=== PATIENT | female | born 2000 | race Caucasian/White ===

== ENCOUNTER 2019-04-23 03:40 | Emergency (ER) | payer OTHER ==
--- NOTE | 2019-04-23 03:54 | PDOC ---
History of Present Illness - General Stated Complaint: ABD PAIN Time Seen by Provider: 04/23/19 03:49 - History of Present Illness Initial Comments: 04/23/19 03:52 18 yo F with no sig pmh who p/w midabdominal pain, vomitting, diarrhea. Patient reports 1 day of crampy, spasmodic, midabdominal pain, occuring every 2 hours, beginning at 4:00 PM (04/22/19) with no identifiable triggers or alleviators. Reports 2 episodes NBNB emesis, and one loose watery stool, within 24 hours. + decreased appetitie, and decreased PO intake. Denies recent travels, sick contacts, or change in diet. LMP x 1 month [employer]. Patient denies vision change, palpitations, cough, wheezing, orthopena, PND, leg swelling/pain, F,C, CP, SOB, urinary complaints, hematuria, BPR, vaginal burning/itching, pelvic pain, constipation, lightheadedness, weakness, sensory changes. PMHx: as noted above ROS: as noted SHx: Denies Etoh, IVDA, tobacco use Allergies: NKDA Past History - Past Medical History Allergies/Adverse Reactions: Allergies Allergy/AdvReac Type Severity Reaction Status Date / Time No Known Allergies Allergy Verified 04/23/19 04:01 Home Medications: Ambulatory Orders NK [No Known Home Medication] 04/23/19 Review of Systems - Review of Systems Comments:: 04/23/19 03:53 GENERAL/CONSTITUTIONAL: No fever or chills. No weakness. HEAD, EYES, EARS, NOSE AND THROAT: No change in vision. No ear pain or discharge. No sore throat. CARDIOVASCULAR: No chest pain or shortness of breath RESPIRATORY: No cough, wheezing, or hemoptysis. GASTROINTESTINAL: + Abdominal pain, nausea, vomiting, diarrhea. No constipation. GENITOURINARY: No dysuria, frequency, or change in urination. MUSCULOSKELETAL: No joint or muscle swelling or pain. No neck or back pain. SKIN: No rash NEUROLOGIC: No headache, vertigo, loss of consciousness, or change in strength/sensation. ENDOCRINE: No increased thirst. No abnormal weight change HEMATOLOGIC/LYMPHATIC: No anemia, easy bleeding, or history of blood clots. ALLERGIC/IMMUNOLOGIC: No hives or skin allergy. *Physical Exam - Physical Exam 04/23/19 03:53 GENERAL: Awake, alert, and fully oriented, in no acute distress HEAD: No signs of trauma, normocephalic, atraumatic EYES: PERRLA, EOMI, sclera anicteric, conjunctiva clear ENT: Auricles normal inspection, hearing grossly normal, nares patent, oropharynx clear without exudates. Moist mucosa NECK: Normal ROM, supple, no lymphadenopathy, JVD, or masses LUNGS: No distress, speaks full sentences, clear to auscultation bilaterally HEART: Regular rate and rhythm, normal S1 and S2, no murmurs, rubs or gallops, peripheral pulses normal and equal bilaterally. ABDOMEN: + Midabodminal and epigastric ttp. Soft, NDS, normoactive bowel sounds. No guarding, no rebound. No masses. Neg CVA ttp. EXTREMITIES : Normal inspection, Normal range of motion, no edema. No clubbing or cyanosis NEUROLOGICAL: Cranial nerves II through XII grossly intact. Normal speech, normal gait, no focal sensorimotor deficits SKIN: Warm, Dry, normal turgor, no rashes or lesions noted ED Treatment Course - LABORATORY CBC & Chemistry Diagram: 04/23/19 04:16 04/23/19 04:16 Medical Decision Making - Medical Decision Making 04/23/19 04:45 18 yo F with no sig pmh who p/w 1 day of crampy, spasmodic, midabdominal pain, occuring every 2 hours, beginning at 4:00 PM (04/22/19), and asx. w/ 1 episode NBNB emesis, and 1 loose watery stool. Vitals wnl, AF, A&Ox3. Physical exam notable for midabdominal and epigastric ttp. Denies cough, wheezing, F,C, CP, SOB, urinary complaints, hematuria, BPR, vaginal burning/itching, pelvic pain, constipation, lightheadedness, weakness, sensory changes. Will provide analgesic and anti-emetic control, and reassess. DDx: gastiritis, enteritis, colitis, biliary dz., pancreatitis, cystitis/pyelo Ed Course: 04/23/19 05:17 Laboratory Tests 04/23/19 04/23/19 04/23/19 04:16 04:16 04:16 WBC 8.5 Hgb 12.9 Hct 37.5 Plt Count 196 Sodium 138 Potassium 3.6 BUN 8.6 Creatinine 0.6 Lipase 41 L Serum , Qual Negative 04/23/19 05:17 Patient pain resolved 04/23/19 06:46 Flu: Neg Patient stable for d/c with return precautions Discharge - Discharge Information Problems reviewed: Yes Clinical Impression/Diagnosis: Abdominal pain Qualifiers: Abdominal location: generalized Qualified Code(s): R10.84 - Generalized abdominal pain - Follow up/Referral - Patient Discharge Instructions Patient Printed Discharge Instructions: DI for Abdominal Pain-Adult Additional Instructions: Please return to the emergency department with any new or worsening symptoms or concerns. Please follow up with your primary care physician within 72 hours. You can take Acetaminophen 650 mg every 6-8 hours as needed for pain - Post Discharge Activity
[2019-04-23] MEDS ORDERED: SODIUM CHLORIDE 1,000 ML IV STA (04:15)
[2019-04-23] MEDS ORDERED: ONDANSETRON 4 MG/2 ML VIAL IVPUSH ONE (04:15)
[2019-04-23] MEDS ORDERED: ACETAMINOPHEN 1000 MG/100 ML VIAL (NON FORMULARY) IVPB ONE (04:15)
[2019-04-23] MEDS ORDERED: FAMOTIDINE 20 MG/50 ML IVPB 20 MG/50 ML MG IVPB ONE ×2 (04:15→04:17)
[2019-04-23] MEDS ORDERED: ONDANSETRON 4 MG/2 ML VIAL ONE (04:17)
[2019-04-23] MEDS ORDERED: ACETAMINOPHEN INJECTION 100 ML IVPB ONE (04:17)
[2019-04-23 04:32] LABS: BASO % 0.1 % (0-2.0); HEMATOCRIT 37.5 % (32.4-45.2); HEMOGLOBIN 12.9 GM/dL (10.7-15.3); LYMPH % 5.5 % (8-40); MCH 30.8 pg (25.7-33.7); MCHC 34.3 g/dl (32.0-36.0); MEAN CELL VOLUME 89.9 fl (80-96); MEAN PLT VOLUME 9.1 fl (7.5-11.1); MONO % 4.4 % (3.8-10.2); PLATELET COUNT 196 K/MM3 (134-434); RBC 4.17 M/mm3 (3.60-5.2); RDW 12.8 % (11.6-15.6); WHITE BLOOD COUNT 8.5 K/mm3 (4.0-10.0)
[2019-04-23 04:50] VITALS: BP 113/70; PULSE 77; TEMP 98.3; BMI 29.2
[2019-04-23 05:04] LABS: ALBUMIN 3.5 g/dl (3.4-5.0); BILIRUBIN,TOTAL 0.5 mg/dL (0.2-1); BLOOD UREA NITROGEN 8.6 mg/dL (7-18); CALCIUM 8.5 mg/dL (8.5-10.1); CREATININE 0.6 mg/dL (0.55-1.3); POTASSIUM 3.6 mmol/L (3.5-5.1); TOT PROT 6.8 g/dl (6.4-8.2)
--- NOTE | 2019-04-23 06:49 | PDOC ---
Attending Attestation - Resident Resident Name: Christ Peace - ED Attending Attestation I have performed the following: I have examined & evaluated the patient, The case was reviewed & discussed with the resident, I agree w/resident's findings & plan - HPI HPI: 04/24/19 01:05 18 yo F with no sig pmh who p/w midabdominal pain, vomitting, diarrhea. Patient reports 1 day of crampy, spasmodic, midabdominal pain, occuring every 2 hours, beginning at 4:00 PM (04/22/19) with no identifiable triggers or alleviators. Reports 2 episodes NBNB emesis, and one loose watery stool, within 24 hours. + decreased appetitie, and decreased PO intake. Denies recent travels, sick contacts, or change in diet. LMP x 1 month [employer]. Patient denies vision change, palpitations, cough, wheezing, orthopena, PND, leg swelling/pain, F,C, CP, SOB, urinary complaints, hematuria, BPR, vaginal burning/itching, pelvic pain, constipation, lightheadedness, weakness, sensory changes. PMHx: as noted above ROS: as noted SHx: Denies Etoh, IVDA, tobacco use Allergies: NKDA - Physicial Exam PE: 04/24/19 01:05 Agree with resident exam - Medical Decision Making 04/24/19 01:06 Patient pain resolved; al;l labs are normal 04/23/19 06:46 Flu: Neg Patient stable for d/c with return precautions
[2019-04-23 06:59] LABS: URINE APPEARANCE CLEAR; URINE BILIRUBIN NEGATIVE (NEGATIVE); URINE COLOR YELLOW; URINE GLUCOSE (UA) NEGATIVE (NEGATIVE); URINE KETONE 2+ (NEGATIVE); URINE LEUK ESTERASE NEGATIVE (NEGATIVE); URINE NITRITE NEGATIVE (NEGATIVE); URINE PROTEIN NEGATIVE (NEGATIVE); URINE UROBILINOGEN 0.2 mg/dL (0.2-1.0)
--- NOTE | 2019-04-23 10:27 | EKG ---
Test Reason : Blood Pressure : / mmHG Vent. Rate : 083 BPM Atrial Rate : 083 BPM P-R Int : 128 ms QRS Dur : 072 ms QT Int : 388 ms P-R-T Axes : 035 016 033 degrees QTc Int : 455 ms NORMAL SINUS RHYTHM NORMAL ECG NO PREVIOUS ECGS AVAILABLE Confirmed by Jameel Lopes MD ([id number]) on 04/23/2019 10:27:09 AM Referred By: Confirmed By:Jameel Lopes MD
== END 2019-04-23 08:15 | disposition home or self-care (01) ==
LOC: JER 03:40
PROC: 3E033GC Introduction of Other Therapeutic Substance into Peripheral Vein, Percutaneous Approach (ICD-10-PCS; principal; 2019-04-23)
PROC: 3E033GC Introduction of Other Therapeutic Substance into Peripheral Vein, Percutaneous Approach (ICD-10-PCS; 2019-04-23)
PROC: 3E033NZ Introduction of Analgesics, Hypnotics, Sedatives into Peripheral Vein, Percutaneous Approach (ICD-10-PCS; 2019-04-23)
DX: R10.84 Generalized abdominal pain (principal)
CPT/HCPCS: 36415; 80053; 81003; 83690; 84703; 85025; 87070; 87804; 87880; 93005; 93010; 99284-25; J0131; J7030